=== PATIENT | male | born 1970 | race Caucasian/White ===

== ENCOUNTER → 2016-05-06 | Outpatient (CLI) | payer BC ==
[~2016-05-06] MED LIST: ACET-1256 PO; BUSP5TAB59 PO; CIPR-255 PO; LEVO50TA6 PO; LEVO75TA5 PO
[2016-05-06 10:04] LABS: THYROID STIMULATING HORMONE 4.1 uIu/ml (0.300-4.500)
== END | disposition home or self-care (01) ==
LOC: C.LAB1850 08:37
PROVIDERS: ATTEND Internal Medicine
DX: E03.9 Hypothyroidism, unspecified (principal)

== ENCOUNTER → 2016-08-09 | Outpatient (CLI) | payer BC ==
[2016-08-09 17:26] LABS: CHOLESTEROL/HDL RATIO 2.6; THYROID STIMULATING HORMONE 0.986 uIu/ml (0.300-4.500)
== END | disposition home or self-care (01) ==
LOC: C.LABBC 12:34
PROVIDERS: ATTEND Internal Medicine
DX: E55.9 Vitamin D deficiency, unspecified (principal); E03.9 Hypothyroidism, unspecified

== ENCOUNTER 2016-12-24 18:29 | Emergency (ER) | payer BC ==
[~2016-12-24] VITALS: Ht 172.7 cm; Wt 52.7 kg
[~2016-12-24 18:29] MED LIST changes: -CIPR-255 PO
[2016-12-24 18:32] VITALS: TEMP 36.4; Ht 172.7 cm; Wt 52.7 kg
--- NOTE | 2016-12-24 18:48 | EMERGENCY ROOM VISIT NOTE ---
History Report prepared by Haritha: Damien Benavides Under the Supervision of: Dr. Issac Mcneil D.O. First contact with patient: 18:37 Chief Complaint: TESTICULAR PAIN Stated Complaint: SWOLLEN R TESTICLE PAIN DISCOMFORT Nursing Triage Summary: right testicular discomfort and edema since this afternoon. History of Present Illness The patient is a 46 year old male who presents to the Emergency Room with complaints of persistent right testicular pain that started earlier this afternoon. He says that the right testicle was noted to be swollen as well. The patient adds that he has been nauseous for the past few days, but it has not been anything too notable. He notes that he has a history of hydrocele, and has seen Dr. Saeed in the past. The patient denies any notable abdominal pain, urinary symptoms, penile discharge, or rectal bleeding. He has not taken any medications for the pain. Source of History: patient Onset: Earlier this afternoon Position: other (right testicle) Quality: other (pain) Timing: other (persistent) Associated Symptoms: + nausea, No abdominal pain, No urinary symptoms Note: Associated symptoms: Right testicular swelling. Denies penile discharge or rectal bleeding. Review of Systems See HPI for pertinent positives & negatives. A total of 10 systems reviewed and were otherwise negative. Past Medical & Surgical Medical Problems: (1) Hydrocele (2) Hypothyroidism Family History No pertinent family history Social History Smoking Status: Never Smoker Smokeless Tobacco Use: No Alcohol Use: none Marital Status: Housing Status: lives with family Occupation Status: employed Current/Historical Medications Scheduled Buspirone Hcl (Buspirone Hcl), 1 TAB PO QAM Ciprofloxacin Hcl (Cipro), 500 MG PO BID Levothyroxine Sodium (Levothyroxine Sodium), 1 TAB PO Q2D Levothyroxine Sodium (Levothyroxine Sodium), 1 TAB PO Q2D Scheduled PRN Acetaminophen (Tylenol), 2 TAB PO Q6 PRN for Pain Allergies Coded Allergies: No Known Allergies (Unverified , 10/17/15) Physical Exam Vital Signs Date Time Temp Pulse Resp B/P (MAP) Pulse Ox O2 Delivery O2 Flow Rate FiO2 12/24/16 19:57 86 18 124/76 99 12/24/16 18:32 36.4 88 16 121/70 99 Room Air Physical Exam GENERAL: Patient is awake, alert, mildly anxious appearing. EYES: The conjunctivae are clear. The pupils are round and reactive. EARS, NOSE, MOUTH AND THROAT: The nose is without any evidence of any deformity. Mucous membranes are moist tongue is midline NECK: The neck is nontender and supple. RESPIRATORY: Normal respiratory effort is noted there is no evidence of wheezing rhonchi or rales CARDIOVASCULAR: Regular rate and rhythm noted there no murmurs rubs or gallops normal S1 normal S2 GASTROINTESTINAL: The abdomen is soft. Bowel sounds are present in all quadrants. Abdomen is nontender : Circumcised male genitalia appreciated. Testicles are descended bilaterally. There was swelling in the right hemiscrotum likely consistent with hydrocele. Testicles appeared to be descended bilaterally. MUSCULOSKELETAL/EXTREMITIES: There is no evidence of gross deformity full range of motion is noted in the hips and shoulders SKIN: There is no obvious evidence of any rash. There are no petechiae, pallor or cyanosis noted. NEUROLOGIC: Patient is awake alert and oriented x3. Medical Decision & Procedures ER Provider Diagnostic Interpretation: US results as stated below per my review and radiologist interpretation. (TESTICULAR) SCROTUM-CONT HISTORY: Pain right sided pain COMPARISON: None. FINDINGS: Right testis: Maximum dimension 4.9 cm. 4 mm epididymal cyst. Small hydrocele. Normal vascular flow. Left testis: Maximum dimension 4.7 cm. Small hydrocele. Normal vascular flow. IMPRESSION: Normal testicular ultrasound. Normal vascular flow to both testis. Small bilateral hydroceles The above report was generated using voice recognition software. It may contain grammatical, syntax or spelling errors. Electronically signed by: Chris Julien M.D. 12/24/2016 7:37 PM Dictated Date/Time: 12/24/2016 7:35 PM Laboratory Results Test 12/24/16 18:45 Urine Color YELLOW Urine Appearance CLEAR (CLEAR) Urine pH 5.0 (4.5-7.5) Urine Specific [place] 1.017 (1.000-1.030) Urine Protein NEG (NEG) Urine Glucose (UA) NEG (NEG) Urine Ketones NEG (NEG) Urine Occult Blood NEG (NEG) Urine Nitrite NEG (NEG) Urine Bilirubin NEG (NEG) Urine Urobilinogen NEG (NEG) Urine Leukocyte Esterase NEG (NEG) Laboratory results per my review. ED Course 1840: The patient was evaluated in room B3B. A complete history and physical examination were performed. 1950: Upon reevaluation, the patient is resting. I discussed the results and treatment plan with him. He verbalized agreement of the treatment plan. He was discharged home. Medical Decision Differential diagnosis: Etiologies such as torsion, mass, infection, hernia, hydrocele, epididymitis, trauma, intra-abdominal process, as well as others were entertained. Nursing notes reviewed. The patient is a 46-year-old male who presented to the emergency department for an evaluation of right testicular pain. The patient's ultrasound and physical exam do not appear to be consistent with testicular torsion. He did have some swelling on his right testicle which could be consistent with a hydrocele. The patient states that he has had a hydrocele in the past. He was reevaluated times. I discussed the possibility that this could represent epididymitis. I recommended starting on an antibiotic but the patient wished to have the prescription to take home with him and if symptoms do not improve in 24 hours he would start the antibiotic. He was encouraged to rest and avoid any strenuous activity. He was also encouraged to follow-up with his primary urologist this week for reevaluation and return to the emergency department immediately if symptoms change worsen or the need arises. Medication Reconcilliation Current Medication List: was personally reviewed by me Blood Pressure Screening Patient's blood pressure: Normal blood pressure Impression Primary Impression: Epididymitis Additional Impressions: Right hydrocele Pain in right testicle Scribe Attestation The scribe's documentation has been prepared under my direction and personally reviewed by me in its entirety. I confirm that the note above accurately reflects all work, treatment, procedures, and medical decision making performed by me. Departure Information Dispostion Home / Self-Care Prescriptions Ciprofloxacin Hcl (CIPRO) 500 Mg Tab 500 MG PO BID, #28 TAB Prov: Issac Mcneil, DO 12/24/16 Referrals Issac Hall M.D. (PCP) Patient Instructions ED Hydrocele Type Not Specified, Epididymitis Orchitis, [facility] Additional Instructions Call your primary urologist this week to schedule a follow-up appointment. Rest and avoid any strenuous activity or heavy lifting. Continue all other medications as prescribed. Continue using Motrin and Tylenol struck for pain. Return to the emergency department immediately if symptoms change worsen or the need arises. Problem Qualifiers
[2016-12-24 19:08] LABS: URINE APPEARANCE CLEAR (CLEAR); URINE BILIRUBIN NEG (NEG); URINE COLOR YELLOW; URINE NITRITE NEG (NEG); URINE SPECIFIC GRAVITY 1.017 (1.000-1.030); UROBILINOGEN NEG (NEG)
[2016-12-24 19:21] LABS: MANUAL MICROSCOPIC REQUIRED? NO; REVIEW REQ? NO
--- NOTE | 2016-12-24 19:38 | DIAGNOSTIC IMAGING REPORT ---
(TESTICULAR) SCROTUM-CONT HISTORY: Pain right sided pain COMPARISON: None. FINDINGS: Right testis: Maximum dimension 4.9 cm. 4 mm epididymal cyst. Small hydrocele. Normal vascular flow. Left testis: Maximum dimension 4.7 cm. Small hydrocele. Normal vascular flow. IMPRESSION: Normal testicular ultrasound. Normal vascular flow to both testis. Small bilateral hydroceles The above report was generated using voice recognition software. It may contain grammatical, syntax or spelling errors. Electronically signed by: Chris Julien M.D. 12/24/2016 7:37 PM Dictated Date/Time: 12/24/2016 7:35 PM
[2016-12-24] MEDS ORDERED: CIPR-255 PO (19:47)
[2016-12-24 19:57] VITALS: BP 124/76; PULSE 86; O2SAT 99
== END 2016-12-24 19:59 | disposition home or self-care (01) ==
LOC: C.EDB 18:30
DX: N45.1 Epididymitis (principal); N43.3 Hydrocele, unspecified; N50.811 Right testicular pain; R11.0 Nausea; E03.9 Hypothyroidism, unspecified; Z87.438 Personal history of other diseases of male genital organs; Z79.899 Other long term (current) drug therapy

== ENCOUNTER → 2017-03-16 | Outpatient (CLI) | payer BC ==
[~2017-03-16] MED LIST changes: +CIPR-255 PO
--- NOTE | 2017-03-16 17:48 | DIAGNOSTIC IMAGING REPORT ---
MRI OF THE RIGHT SHOULDER WITHOUT CONTRAST CLINICAL HISTORY: Right shoulder pain. COMPARISON STUDY: No previous studies for comparison. TECHNIQUE: Utilizing a 1.5 Staci magnet, multiplanar, multi echo imaging of the right shoulder was performed without intravenous or intra-articular contrast. FINDINGS: This exam is mildly compromised by motion artifact. There is no marrow replacement or marrow edema. There is mild arthritis of the right acromioclavicular and glenohumeral joints. The proximal long head of the biceps tendon is intact. There is no full-thickness rotator cuff tear. There is increased signal within distal supraspinatus consistent with tendinopathy. There is small interstitial tear within distal supraspinatus. Infraspinatus, subscapularis and teres minor are intact. The glenoid labrum is suboptimally assessed on this nonarthrogram exam. The posterior inferior glenoid labrum is truncated. IMPRESSION: 1. Tendinopathy of distal supraspinatus with subtle interstitial partial thickness tear of distal supraspinatus. No full-thickness cuff tear. No tendon retraction or muscular atrophy. 2. Truncated posterior inferior glenoid labrum, suboptimally assessed on this nonarthrogram exam. 3. 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 Electronically signed by: Ian Iqbal M.D. 03/16/2017 5:47 PM Dictated Date/Time: 03/16/2017 2:58 PM
== END | disposition home or self-care (01) ==
LOC: C.MRI 13:43
PROVIDERS: ATTEND Internal Medicine
DX: M19.011 Primary osteoarthritis, right shoulder (principal)